=== PATIENT | female | born 2000 | race African-American/Black ===

== ENCOUNTER 2021-03-20 20:17 | Emergency (ER) | payer OTHER ==
[2021-03-20] MEDS ORDERED: Lidocaine 1% (PF) 30 ML VIAL ONE (20:43)
[2021-03-20] MEDS ORDERED: Boostrix 0.5 ML (Tdap) VIAL ONE (20:43)
== END 2021-03-20 21:30 | disposition home or self-care (01) ==
LOC: CSHERS 20:17
DX: S01.112A Laceration without foreign body of left eyelid and periocular area, initial encounter (principal); W25.XXXA Contact with sharp glass, initial encounter
CPT/HCPCS: 12013; 90471; 90715; J2001

== ENCOUNTER 2021-03-30 17:47 | Emergency (ER) | payer OTHER | END 2021-03-30 18:40 | disposition home or self-care (01) | LOC: CSHERS 17:47 | DX: S01.112D Laceration without foreign body of left eyelid and periocular area, subsequent encounter (principal) ==

== ENCOUNTER 2022-04-03 13:42 | Emergency (ER) | payer OTHER ==
[2022-04-03 15:21] LABS: #Basophils 0.1 10x3/uL (0.0-0.2); #Eosinphils 0.1 10x3/uL (0.0-0.5); #Monocytes 0.4 10x3/uL (0.0-1.1); #Neutrophils 2.4 10x3/uL (1.5-8.4); %Eosinophils 1.4 % (0.0-6.0); %Lymphocytes 42.4 % (18.0-47.0); %Monocytes 8.1 % (0.0-10.0); %Neutrophils 46.9 % (40.0-75.0); Hemoglobin 11.6 g/dL (12.0-15.5); Mean Corpuscular HGB CONC 31.7 g/dL (32.0-36.0); Mean Corpuscular Hemoglobin 25.9 pg (27.0-33.0); Mean Corpuscular Volume 81.7 fl (81.6-98.3); Mean Platelet Volume 10.5 fl (7.4-10.4); Platelet Count 349 10x3/uL (150-450); RBC Distribution Width 13.4 % (11.5-14.5); Red Blood Cell (RBC) Count 4.48 10x6/uL (3.90-5.03); White Blood Cell (WBC) Count 5.2 10x3/uL (3.5-10.5)
[2022-04-03 15:32] LABS: ALT (SGPT) 7 U/L (8-55); AST (SGOT) 14 U/L (5-34); Albumin 4.4 g/dL (3.5-5.0); Alkaline Phosphatase 61 U/L (40-100); Anion Gap 11 mmol/L (10-20); BUN (Urea Nitrogen) 14 mg/dL (7.0-18.7); Bilirubin, Total 0.9 mg/dL (0.2-1.2); Calc. Creatinine Clearance 0 mL/min (70-130); Carbon Dioxide 26 mmol/L (22-29); Chloride 108 mmol/L (98-107); Estimated GFR 105; Globulin 3.8 g/dL (2.4-3.5); Glucose 90 mg/dL (70-105); Potassium 3.5 mmol/L (3.5-5.1); Protein, Total 8.2 g/dL (6.0-8.3); Sodium 141 mmol/L (136-145)
[2022-04-03 15:57] LABS: Bilirubin Neg (Negative); Blood, Urine 25 (Negative); Clarity Clear (Clear); Glucose, Urine (Dipstick) Normal (Negative); Ketone, Urine Negative (Negative); Leukocyte 25 (Negative); Nitrite Negative (Negative); Protein, Urine (Dipstick) Negative (Neg-Trace)
[2022-04-03 16:03] LABS: Pregnancy Test - Urine (BHCG) Negative (Negative); Pregu Control Background? CLEAR/WHITE (CLR/WHITE); Pregu Control Bar Appear? YES (CONTROL BAR)
[2022-04-03 16:37] LABS: Bacteria/HPF Rare-Few HPF (None Seen); RBC/HPF 0-3 HPF (0-3); Squamous Epithelial 0-3 HPF (0-3); WBC/HPF 0-3 HPF (0-3)
[2022-04-03] MEDS ORDERED: cefTRIAXone\\ROCEPHIN 500 MG VIAL ONE (16:52)
[2022-04-03] MEDS ORDERED: Azithromycin 250 MG TAB ONE (16:52)
[2022-04-03] MEDS ORDERED: Lidocaine 1% PF 5 ML VIAL ONE (16:53)
[2022-04-04 22:07] LABS: Chlamydia by PCR Not Detected (NotDetected); GC by PCR Not Detected (NotDetected)
== END 2022-04-03 17:25 | disposition home or self-care (01) ==
LOC: CSHERS 13:42
DX: R10.2 Pelvic and perineal pain (principal); Z20.2 Contact with and (suspected) exposure to infections with a predominantly sexual mode of transmission
CPT/HCPCS: 36415; 80053; 81003; 81015; 81025; 85025; 87491; 87591; 87661; 96372; 99284; J0696

== ENCOUNTER 2022-07-04 20:01 | Emergency (ER) | payer OTHER ==
[2022-07-04] MEDS ORDERED: Ketorolac Tromethamine 30 MG/ML VIAL ONE (21:17)
[2022-07-04] MEDS ORDERED: Dicyclomine 20 MG/2 ML VIAL ONE (21:17)
[2022-07-04] MEDS ORDERED: Ondansetron ODT 4 MG TAB ONE (21:17)
== END 2022-07-04 22:00 | disposition home or self-care (01) ==
LOC: CSHERS 20:01
DX: A08.4 Viral intestinal infection, unspecified (principal)
CPT/HCPCS: 96372; 99283; J1885; Q0162